=== PATIENT | male | born 2000 | race Caucasian/White ===

== ENCOUNTER 2024-09-02 22:10 | Emergency (ER) | payer BC, SELFPAY ==
[2024-09-02 22:36] LABS: % Basophils 0.2 % (0-2); % Eosinophils 0.3 % (0-6); % Immature Granulocytes 0.2 % (0-0.5); % Lymphocytes 5.1 % (20.5-51.1); % Monocytes 5.1 % (1.7-9.3); % Neutrophils 89.1 % (42.2-75.2); Absolute Lymphocytes 0.7 10^3/uL (1.2-3.4); Absolute Monocytes 0.7 10^3/uL (0.1-0.6); Absolute Neutrophils 11.9 10^3/uL (1.4-6.5); Hemoglobin 17.1 g/dL (13.0-18.0); Mean Corp Hgb Conc. 35.6 g/dL (33.0-37.0); Mean Corpuscular Hgb 30.9 pg (27.0-31.0); Mean Corpuscular Volume 86.6 fL (80.0-94.0); Mean Platelet Volume 9.6 fL (7.4-10.4); Nucleated Red Blood Cells % 0 % (-); Platelet Count 245 10^3/uL (130-400); Red Blood Cell Count 5.54 10^6/uL (4.70-6.10); Red Cell Dist. Width 12.4 % (11.5-14.5); White Blood Cell Count 13.4 10^3/uL (4.8-10.8)
[2024-09-02 22:49] LABS: ALT (SGPT) 34 U/L (0-50); AST (SGOT) 28 U/L (17-59); Albumin 5.3 g/dl (3.5-5.0); Alkaline Phosphatase 72 U/L (38-126); Blood Urea Nitrogen 23 mg/dl (9-20); Carbon Dioxide 27 mmol/L (22-30); Chloride 98 mmol/L (98-107); Glucose 150 mg/dl (70-99); Lipase 38 U/L (23-300); Potassium 4.4 mmol/L (3.5-5.1); Sodium 136 mmol/L (135-145); Total Protein 8.2 g/dl (6.3-8.2); eGFR > 60.00
--- NOTE | 2024-09-02 23:34 | ED.GENMED ---
History of Present Illness
General
Chief Complaint: Abdominal Symptoms
Source: patient
Exam Limitations: none
Time Seen by Provider: 09/02/24 23:06
Nursing documentation reviewed up to this point in time: agreed with
History of Present Illness
History of Present Illness:
The patient is a 23-year-old man who comes in with complaints of nausea, vomiting and diarrhea since 4 PM today. Patient complains of left upper abdominal pain and nausea. He reports he had 1 episode of nonbloody watery diarrhea. He denies sick
contacts and recent antibiotic use. He denies any lower abdominal pain. He denies any difficulty urinating.
Past History
Past History
ED Past Medical History: None
ED Past Surgical History: Orthopedic
Social History
Tobacco: Non-smoker
Alcohol: None
Drug: None
Personal: Single
Living: with family
Employment: Other
Family History
Family History: Other
Review of Systems
Review of Systems
Allergies reviewed?: Yes
All Other Systems: ROS reviewed and negative except as documented in HPI and ROS
Constitutional: Reports chills
EENT: Reports no symptoms
Respiratory: Reports no symptoms
Cardiac: Reports no symptoms
ABD/GI: Reports abdominal pain, nausea, vomiting, diarrhea and anorexia
: Reports no symptoms
Musculoskeletal: Reports no symptoms
Skin: Reports no symptoms
Neurological: Reports no symptoms
Endocrine: Reports no symptoms
Hematologic/Lymphatic: Reports no symptoms
Psychiatric: Reports no symptoms
Phy Exam
Physical Exam
Physical Exam:
Physical Exam
General: Patient appears uncomfortable but nontoxic
Neck: supple. no meningeal signs. normal psoterior pharynx
Heart: s1/s2 regular rate and rhythm, no murmur. equal radial pulses.
Lungs: no acute respiratory distress. clear bilaterally
Abdomen: Normal bowel sounds. Nondistended. Mild left upper quadrant tenderness without rebound or guarding.
Neuro: alert and oriented. no focal neurological deficits
Skin: no rash
Psychiatric: well kept. interactive and cooperative
Extremities: no edema. no calf tenderness. negative homans. good distal pulses
Course
Orders/Labs/Results
Orders:
Orders
09/02/24 22:28
Complete Blood Count/With Diff Urgent
Comprehensive Metabolic Panel Urgent
Lipase Urgent
09/02/24 23:33
0.9% Sodium Chloride 1000 ml [Nss] 1,000 ml IV BOLUS
09/02/24 23:34
Ondansetron Injectable [Zofran] 4 mg IV NOW STA
Abnormal Lab Results
09/02/24
22:28
WBC 13.4 H 10^3/uL
(4.8-10.8)
Absolute Neuts (auto) 11.9 H 10^3/uL
(1.4-6.5)
Absolute Lymphs (auto) 0.7 L 10^3/uL
(1.2-3.4)
Absolute Monos (auto) 0.7 H 10^3/uL
(0.1-0.6)
Neutrophils % 89.1 H %
(42.2-75.2)
Lymphocytes % 5.1 L %
(20.5-51.1)
BUN 23 H mg/dl
(9-20)
Glucose 150 H mg/dl
(70-99)
Albumin 5.3 H g/dl
(3.5-5.0)
09/02/24 22:28
09/02/24 22:28
Vital Signs
Initial and Last Documented VS:
Initial Vital Signs
Pulse Resp BP Pulse Ox
94 18 119/74 100
09/02/24 23:58 09/02/24 23:58 09/02/24 23:58 09/02/24 23:58
Last Documented Vital Signs
Pulse Resp BP Pulse Ox
94 18 119/74 100
09/02/24 23:58 09/02/24 23:58 09/02/24 23:58 09/02/24 23:58
MDM/Problems Addressed
Differential Diagnosis Includes:
Acute gastroenteritis, acute appendicitis, bowel obstruction
MDM/Problems Addressed:
Patient presents with acute abdominal pain, nausea, vomiting and diarrhea
*Pulse Oximetry
Patient hypoxic: no
*EKG
Interpreted by ED Provider?: NA
*Addressograph Operator Interpretation
Rate: Addressograph Operator- N/A
*Critical Care Note
Total Time (30-74mins, 75-104mins- exclusive of procedures): Not Applicable
Data Reviewed
Source: patient and family
Patient Management
Social determinants of health affecting care: Living situation and Strong social support
Escalation/DeEscalation of care consider admission/obs:
Patient feels much better with IV fluids and Zofran. He is able to drink fluids without difficulty. Abdomen remains nondistended and there is no lower abdominal or umbilical tenderness to suggest acute appendicitis. Patient and family told to
return with any localized pain to the lower right abdomen and educated about appendicitis. Patient likely has viral illness.
ED Attending Note
-
Portions of this chart may have been created with voice recognition software.� Occasional wrong word or��sound alike� substitutions may have occurred due to the inherent limitations of voice recognition software.
Discharge Plan
Departure
Patient Disposition: Home (Routine Discharge)
Date of Disposition: 09/03/24
Time of Disposition: 01:10
Patient with high blood pressure during this ER visit?: No
Condition: Good
Covid-19: Not Applicable
Discharge Problem:
Acute nausea with nonbilious vomiting, Acute diarrhea
Instructions: Viral gastroenteritis in adults, Clear Liquid Diet, Nausea and Vomiting, Adult (DC)
Prescriptions:
New
ondansetron 4 mg tablet,disintegrating
4 mg PO Q6H PRN (Reason: nausea and vomiting) Qty: 14 0RF
No Action
ondansetron 4 MG tablet,disintegrating
4 mg PO TIDPRN PRN (Reason: NAUSEA) Qty: 10 0RF
Referrals:
UNKNOWN,NO INTERVIEW [Unknown Provider] -
Interventions
Interventions:
*Risk Screen - Suicide Last Done: 09/02/24 22:11
*General Assessment Last Done: 09/02/24 22:12
*Neglect/Abuse Screening Last Done: 09/02/24 22:11
*ED COVID-19 Vaccine History Last Done: 09/02/24 22:12
*Nursing Disposition Last Done: 09/03/24 01:38
UE-Tsjobo-Fismwsnnwt Assessment Last Done: 09/02/24 23:58
Discharge Date and Time
Discharge Date/Time: 09/03/24 01:39
Print Language: CHINESE
[2024-09-02] MEDS: ZOFRAN 4 MG IV (23:42)
[2024-09-02] MEDS: NSS 1000 IV (23:42)
[2024-09-02 23:58] VITALS: BP 119/74; BMI 23.6
== END 2024-09-03 01:39 | disposition home or self-care (01) ==
LOC: EMR 22:10
PROVIDERS: Emergency Medicine; EMERGENCY PHYSICIAN Emergency Medicine; FAMILY PHYSICIAN Family Medicine; REFERRING PHYSICIAN Internal Medicine Gastroenterology
DX: R11.2 Nausea with vomiting, unspecified (principal); R19.7 Diarrhea, unspecified; R10.12 Left upper quadrant pain
CPT/HCPCS: 96374; 96361; 99284; 80053; 83690; 85025